=== PATIENT | female | born 1995 | race Two or more races ===

== ENCOUNTER 2024-06-03 18:13 | Emergency (ER) | payer MEDICAID, SELFPAY ==
[2024-06-03 19:52] VITALS: BP 128/91; PULSE 87; RESP 20; TEMP 37.5; O2SAT 98
--- NOTE | 2024-06-03 19:52 | XR_ITS ---
Examination: PA lateral chest 2 views Technique: Upright PA lateral chest 2 views Exam date and time: June 03, 2024 at 2012 hrs. Indications: Chest pain today Findings: Normal heart size. Lungs are clear. Osseous structures are intact. Impression: No active disease
--- NOTE | 2024-06-03 19:52 | EDNOTE_ITS ---
Upper Respiratory Inf. RME/HPI General Chief Complaint: Flu Like Symptoms Stated Complaint: BAD COUGH X 4 DAYS, CHEST BEGINNING TO HURT Time Seen by Provider: 06/03/24 19:19 Arrival date/time: 06/03/24 18:13 29 year old female present to emergency room with c/o of ongoing cough, sore throat for 4 days. LOCATION: throat, cough SEVERITY: Symptoms are described as being severe with limitations on activities of daily living CONTEXT: The patient is unable to identify any inciting events. DURATION/TIMING: The symptoms started approximately 4 days ago and have been constant since and have been progressive getting worse. ASSOCIATED SYMPTOMS: The patient is unable to identify any other associated symptoms. MODIFYING FACTORS: The patient is unable to identify any alleviating or aggravating symptoms. PERTINENT ROS: no fevers, no pleuritic pain, no shortness of breath no nausea,vomiting, diarrhea, no dizziness/headache no rash no loc/syncope episode no abd/back pain REVIEW OF SYSTEMS: See History of Present Illness - with the exception of those mentioned in the history of present illness, all other systems reviewed and reported as negative GENERAL: In general the patient is awake, interactive, in an [place]. HEAD/EYES/EARS/NOSE/THROAT: normo-cephalic, atraumatic, mucus membranes are moist, anicteric, palpebral conjunctiva is pink, trachea is midline. CARDIOVASCULAR: regular rate and regular rhythm, no murmurs, heart sounds are not distant, strong pulses in all four extremities that are equal and symmetric bilateral upper and lower extremities, normal capillary refill. CHEST/PULMONARY: normal chest rise and fall, good air movement, clear to auscultation bilaterally, normal inspiratory to expiratory ratios without evidence of respiratory distress. NECK: No midline/Paraspinal tenderness, no step off ROM/Strenght intact No Kernig and bruzinski sign. No trauma ABDOMEN: soft, not tender, no masses appreciated BACK: normal range of motion without pain. NEUROLOGICAL: cranio-facial features are symmetric, moves all four extremities equally without obvious limitations or weakness. EXTREMITY: no tenderness to palpation over the long bones or large joints of the bilateral upper and lower extremities, no joint swelling, no joint erythema, no signs of trauma, no unilateral leg swelling and no peripheral edema. SKIN: warm, dry, well-perfused, no jaundice, no rash, no telangiectasias or petechia. PSYCH: calm, cooperative, no evidence of psychosis or agitation Related Data Previous Rx's ?Medication ?Instructions ?Recorded docusate sodium 100 mg capsule 100 mg PO BID #20 caps 05/30/23 (Colace) hydrocodone 5 mg-acetaminophen 325 1 tab PO Q8H PRN pa in (scale score 05/30/23 mg tablet 7-10) #10 tabs ibuprofen 600 mg tablet 600 mg PO Q8H PRN pain (scal e 05/30/23 score 4-6) #15 tabs albuterol sulfate 90 mcg/actuation 1 inh inhalation QI D PRN shortness 06/03/24 aerosol inhaler of breath or wheezing #6.7 g sheron azithromycin 250 mg tablet See Rx Instructions PO .COM PLEX #6 06/03/24 tabs benzonatate 200 mg capsule 200 mg PO TID PRN cough #30 caps 06/03/24 methylprednisolone 4 mg tablets in 4 mg PO .as directe d #21 tabs 06/03/24 a dose pack (Medrol (Bakari)) Allergies Allergy/AdvReac Type Severity Reaction Status Date / Time hydroxyprogesterone (From Allergy Severe Redness of Verified 06/03/24 18:16 [place]) Skin Course Course Course Narrative: Patient presenting with cough.? Patient afebrile.? No hypoxia.? ?Lung exam within normal limits.? Obtained and reviewed CXR, which did not reveal any acute abnormalities or infiltrates.?? History, physical exam, and radiographic findings were discussed with the pat obdulia.? At this time, it is felt that the most likely explanation for the patient's symptoms is acute bronchitis versus viral upper respiratory infection.? I also considered pneumonia, GERD, pneumothorax, PE but this appears less likely considering the data gathered thus far.? I have instructed the patient to return to the ER at any time if there are any new or worsening symptoms. Provided patient with prescription for cough suppressant.? Supportive treatment options were discussed.? ?The patient expressed understanding of and agreement with this plan.? Opportunity was given for questions prior to discharge and all stated questions were answered to the patient's satisfaction.? Plan:? Prescribed pocket zpack, medro dose bakari, inhaler and tessalon pearls? Advised Pt on supportive therapies, including using a vaporizer/humidifer/steam from hot showers, advancement of fluids as tolerated, exercise, nasal saline sprays, rest, avoidance of cold air, avoidance of second-hand smoke, frequent hand-washing w/ soap and water, and OTC acetaminophen or ibuprofen as directed prn for pain control. Instructed Pt to monitor for shaking chills or T>100.5 deg F, persistent cough >7-10d, hemoptysis, delirium or confusion, cyanosis, and respiratory distress. Instructed Pt to f/up w/ PCP in days. Pt verbally expressed understanding and all questions were addressed to Pt's satisfaction. Quality Measures none Orders Category Date Time Status Bedside Influenza A&B Antigen Test NOW Care 06/03/24 19:52 Completed XR chest 2V Stat Exams 06/03/24 19:52 Completed Throat Culture Stat Lab 06/03/24 20:13 Received Vital Signs Vital signs: Vital Signs Temperature 99.5 F 06/03/24 19:52 Pulse Rate 87 06/03/24 19:52 Respiratory Rate 20 06/03/24 19:52 Blood Pressure 128/91 H 06/03/24 19:52 Pulse Oximetry (%) 98 06/03/24 19:52 Oxygen Delivery Method Room Air 06/03/24 19:52 Upper Respiratory Infection Patient data External records reviewed:: [facility] previous records Clinical information provided by:: patient Social determinants that could affect healthcare access:: none Patient has the following chronic illnesses:: n/a How is presenting disease/condition affected by chronic disease/condition?: no chronic disease Evaluation data The following diagnostics were reviewed and interpreted by me:: lab results and radiology exam(s) Lab and/or radiology exams considered but not ordered:: n/a Interpretation Summary: influenza strep culture: pending Medications / Prescriptions Medications or Prescriptions considered but not ordered:: n/a Medication administrations:: na Consultations Consultation(s) initiated? (list below): No Diagnosis Upper Respiratory Differential Diagnosis: upper respiratory infection, viral infection, bronchitis, influenza and pharyngitis Most likely diagnosis given after review of the tests above:: bronchitis Admission Indicated Admission indicated?: not indicated Explain why admission is indicated or not indicated:: n.a Admission Request Was there a request for admission?: No Disposition Plan Disposition Plan: Discharge Discharge Attestation Discharge Attestation: The patient and all family members were given an opportunity to ask questions and understood the discharge instructions. Discharge instructions specifically effects, indications for sooner follow up or return to the emergency department, and the expected course of current diagnosis. Patient condition: Stable Discharge Plan Plan Patient Disposition: HOME (Self Care) Prescriptions/Referrals Prescriptions/Med Rec: New albuterol sulfate 90 mcg/actuation HFA aerosol inhaler 1 inh inhalation QID PRN (Reason: shortness of breath or wheezing) Qty: 6.7 0RF azithromycin 250 mg tablet See Rx Instructions .ROUTE .COMPLEX Qty: 6 0RF Rx Instructions: For 250 mg dose pack: take 500 mg today (day 1), then 250 mg for 4 days (days 2-5) methylprednisolone [Medrol (Bakari)] 4 mg tablets,dose pack 4 mg PO .as directed Qty: 21 0RF benzonatate 200 mg capsule 200 mg PO TID PRN (Reason: cough) Qty: 30 0RF No Action docusate sodium [Colace] 100 mg capsule 100 mg PO BID Qty: 20 0RF ibuprofen 600 mg tablet 600 mg PO Q8H PRN (Reason: pain (scale score 4-6)) Qty: 15 0RF hydrocodone-acetaminophen 5-325 mg tablet 1 tab PO Q8H MDD 3 PRN (Reason: pain (scale score 7-10)) Qty: 10 0RF Referrals: No Primary/Family,Physician [Primary Care Provider] - In 1 week Problem List Clinical Impression: Bronchitis Patient/Caregiver Discharge Instructions Education Materials: ED Bronchitis with Wheezing (Adult) Print Language: Romansh Stand Alone Forms: Sarah Award Info., Patient Portal Info Letter
[2024-06-03] MEDS: DEXAMETHASONE SOD PHOS INJ 10 MG/ML VIAL PO (22:11)
== END 2024-06-03 22:39 | disposition home or self-care (01) ==
PROVIDERS: Emergency Provider Emergency Medicine
DX: J40 Bronchitis, not specified as acute or chronic (principal)
CPT/HCPCS: 71046; 87070; 87400; 99283; J1100